=== PATIENT | female | born 1975 | race Caucasian/White ===

== ENCOUNTER 2023-03-24 18:09 | Emergency (ER) | payer MEDICAID, SELFPAY ==
[2023-03-24 18:11] VITALS: BP 151/93; PULSE 98; RESP 18; TEMP 36.9; O2SAT 96; BMI 31.8
[2023-03-24 18:34] VITALS: BMI 31.8
--- NOTE | 2023-03-24 18:35 | HMH.EDGENADL ---
Discharge Plan Disposition Patient Disposition: Home, Self-Care Chief Complaint: Abdominal Pain Referrals Follow up/Referrals: Savita Leyva [Primary Care Provider] - See instructions Lucrecia Blood DO [Staff Physician] - See instructions Clinical Impressions Clinical Impression: Ovarian cyst rupture, Adnexal cyst Instructions Patient Instructions: DI for Acute Abdominal Pain Discharge ED Provider: Tiff Peña General Adult HPI <Tiff Peña MD - Last Filed: 03/24/23 20:10> General Chief complaint: Abdominal Pain Stated complaint: Pain L Side into back Time Seen by Provider: 03/24/23 18:35 History of Present Illness HPI narrative: Patient is a 47-year-old female with left lower quadrant abdominal pain. This is been going on for several days and has been slowly worsening took about 24 hours to reach maximal intensity. No history of ovarian pathology no history of diverticulitis. Patient has not had any loose stools or bloody stools. No urinary symptoms other than a little bit of increased urine frequency but no urgency dysuria. Patient denies any changes in bowel movements no blood in her stool. No history of any kidney stones. There is some left flank pain associated with this but its been constant is a deeper pain not tender to the touch. No fevers or chills. Related Data Allergies Allergy/AdvReac Type Severity Reaction Status Date / Time Penicillins Allergy Verified 03/24/23 18:32 PFSH <Tiff Peña MD - Last Filed: 03/24/23 20:10> [facility] Disclaimer: The information contained in this section may have been updated after the patient was seen, as this information can be updated by other users. Social History (Updated 03/24/23 @ 20:10 by Tiff Peña MD) Smoking Status: Never smoker alcohol intake: never current occupational status: other Travel in the last 8 weeks: None <Tiff Peña MD - Last Filed: 03/24/23 20:10> ROS Obtained: Yes All systems reviewed & no additional complaints except as documented Physical Exam <Tiff Peña MD - Last Filed: 03/24/23 20:10> General General appearance: alert Respiratory Respiratory exam: Present normal lung sounds bilaterally Cardiovascular Cardiovascular exam: Present regular rate; Absent tachycardia Abdominal Exam Abdominal exam: Present tenderness (Left lower quadrant tenderness palpation no rebound or guarding no tenderness in other quadrants) Neurological Exam Neurological exam: Present alert and oriented X3 Medical Decision Making <Tiff Peña MD - Last Filed: 03/24/23 20:10> [facility] Inquiry Pt receiving controlled substance: No Vital Signs: 03/24/23 18:11 03/24/23 19:30 03/24/23 20:00 Temperature 98.4 F Temperature Source Oral Pulse Rate 86 77 Pulse Rate [Left Radial] 98 H Respiratory Rate 18 20 20 Blood Pressure 131/75 147/93 H Blood Pressure [Right Arm] 151/93 H Blood Pressure Mean 93 111 Blood Pressure Mean [Right Arm] 112 Blood Pressure Source [Right Arm] Automatic Cuff Blood Pressure Position [Right Arm] Sitting 02 Sat by Pulse Oximetry 96 95 98 Oxygen Delivery Method Room Air 03/24/23 20:31 Temperature Temperature Source Pulse Rate 80 Pulse Rate [Left Radial] Respiratory Rate 18 Blood Pressure 142/81 H Blood Pressure [Right Arm] Blood Pressure Mean 101 Blood Pressure Mean [Right Arm] Blood Pressure Source [Right Arm] Blood Pressure Position [Right Arm] 02 Sat by Pulse Oximetry 96 Oxygen Delivery Method Lab Data Lab results reviewed: Yes I reviewed the patient's lab results. Lab Results 03/24/23 18:25: Urine Color Yellow, Urine Appearance Clear, Urine pH 6.5, Ur Specific Pavo <= 1.005, Urine Protein Negative, Urine Glucose (UA) Negative, Urine Ketones Negative, Urine Blood Trace-i, Urine Nitrate Negative, Urine Bilirubin Negative, Urine Urobilinogen 0.2, Ur Leukocyte Esterase Negative, Urine RBC Occasional, Urine WBC None, Ur Squamous Epith Cells Occasional, Uri
--- NOTE | 2023-03-24 18:39 | CT_ITS ---
PROCEDURE INFORMATION: Exam: CT Abdomen And Pelvis With Contrast Exam date and time: 03/24/2023 7:10 PM Age: 47 years old Clinical indication: Abdominal pain; Generalized; Prior surgery; Surgery date: 6+ months; Surgery type: Hysterectomy; Additional info: Llq abd pain TECHNIQUE: Imaging protocol: Computed tomography of the abdomen and pelvis with contrast. Radiation optimization: All CT scans at this facility use at least one of these dose optimization techniques: automated exposure control; mA and/or kV adjustment per patient size (includes targeted exams where dose is matched to clinical indication); or iterative reconstruction. Contrast material: ISOVUE; Contrast volume: 75 ml; Contrast route: IV; REPORTING DATA: Count of CT and Cardiac NM exams in prior 12 months: This patient has received 0 known CTs and 0 known cardiac nuclear medicine studies in the 12 months prior to the current study. COMPARISON: No relevant prior studies available. FINDINGS: Lungs: Minimal bibasilar atelectasis. There is a 2 mm right lower lobe pulmonary nodule on image 1 series 3. Liver: Low attenuation hepatic lesions measuring up to 9 mm in diameter are incompletely characterized, but are likely cysts. No followup imaging is recommended. Gallbladder and bile ducts: Normal. No calcified stones. No ductal dilation. Pancreas: Normal. No ductal dilation. Spleen: Normal. No splenomegaly. Adrenal glands: Normal. No mass. Kidneys and ureters: Low attenuation renal lesions measuring up to 7 mm in diameter are incompletely characterized, but are likely cysts. No followup imaging is warranted. Stomach and bowel: Unremarkable. No obstruction. No mucosal thickening. Appendix: Unremarkable appendix. Intraperitoneal space: Trace free fluid in the pelvis, which could be physiologic. Vasculature: The arteries demonstrate mild atherosclerotic disease. Lymph nodes: Unremarkable. No enlarged lymph nodes. Urinary bladder: Unremarkable as visualized. Reproductive: Status post hysterectomy. Bilateral adnexal cystic lesions measuring up to 5.5 cm. These are favored to be simple cysts. Bones/joints: Unremarkable. No acute fracture. Soft tissues: Tiny fat containing umbilical hernia. IMPRESSION: 1. Small amount of free fluid around the left ovary. Please correlate for a recently ruptured ovarian cyst. 2. Bilateral adnexal cystic lesions measuring up to 5.5 cm. These are favored to be simple cysts. Ultrasound follow-up in 6-12 months is recommended. (Reference: Vic) 3. There is a 2 mm right lower lobe pulmonary nodule on image 1 series 3. For patients at low risk (minimal or absent history of smoking and of other known risk factors), no routine follow-up is indicated. For patients at high risk (history of smoking or of other known risk factors), consider optional CT Chest at 12 months. (Reference: Jacinto) COMMENTS: Consistent with the [employer]'s Incidental Findings Committee white paper (J Am Christina Radiol 2018): Any incidental renal lesion less than 1 cm or classified as too small to characterize, or any incidental cystic renal lesion characterized as simple-appearing, is likely benign. No follow-up imaging is recommended for these lesions per consensus recommendations based on imaging criteria. REFERENCES: 1. Vic et al. Management of Incidental Adnexal Findings on CT and MRI: A White Paper of the ACR Incidental Findings Committee, J Am Christina Radiol. 2019;17(2):248-254. 2. Jacinto Luna et al. Guidelines for Management of Incidental Pulmonary Nodules Detected on CT Images: From the Fleischner Society 2017. Radiolog
[2023-03-24 18:48] LABS: Microscopic, Urine URINE MICROSCOPIC (MICROSCOPIC)
[2023-03-24 18:52] LABS: Basophils % 0.5 % (0.1-2.0); Eosinophils # 0.1 K/mm3 (0.0-0.4); Eosinophils % 1.1 % (0.1-12.0); Hematocrit 40.8 % (37.0-47.0); Hemoglobin 13.5 g/dL (12.2-16.2); Lymphocytes # 1.9 K/mm3 (0.7-4.5); Mean Corpuscular Hemoglobin 29.1 pg (27.0-31.2); Mean Corpuscular Volume 87.9 fl (81-99); Mean Platelet Volume 7.9 fl (7.4-10.4); Monocytes # 0.4 K/mm3 (0.1-1.0); Neutrophils % 71.5 % (37.0-80.0); Platelet Count 236 K/mm3 (142-424); Red Blood Count 4.64 M/mm3 (4.20-5.40); Red Cell Distribution Width 13.3 % (11.5-17.5); White Blood Count 8.4 K/mm3 (4.8-10.8)
[2023-03-24 18:54] LABS: Lipase 61 U/L (23-300)
--- NOTE | 2023-03-24 18:56 | PC.NURSE ---
PT DID NOT WANT TO TAKE THE MORPHINE DOES DO WELL WITH PAIN MEDS
[2023-03-24 18:58] LABS: Appearance,Urine CLEAR (Clear); Bilirubin,Urine Negative (Negative); Blood, Urine TRACE-I (Negative); Color,Urine YELLOW (Yellow); Glucose,Urine (UA) Negative (Negative); Ketones,Urine Negative (Negative); Leukocyte Esterase,Urine Negative (Negative); Nitrate,Urine Negative (Negative); PH,Urine 6.5 (5.0-8.5); Protein,Urine Negative (Negative); Specific Gravity, Urine <= 1.005 (1.005-1.030); Urobilinogen,Urine 0.2 EU/dl (0.2)
[2023-03-24 19:20] LABS: Bacteria,Urine Trace /lpf; RBC,Urine Occasional #/hpf (0-3); Squamous Epithelial Cell,Urine Occasional #/hpf (0-5)
[2023-03-24 19:30] VITALS: BP 131/75; PULSE 86; RESP 20; O2SAT 95
--- NOTE | 2023-03-24 19:56 | US_ITS ---
PROCEDURE INFORMATION: Exam: US Duplex Artery or Vein of the Abdominal and/or Reproductive Organs, Limited Ovaries Exam date and time: 03/24/2023 8:44 PM Clinical indication: Pelvic pain; Prior surgery; Surgery date: 6+ months; Surgery type: Hysterectomy; Additional info: Transvag, evaluate for torsion TECHNIQUE: Imaging protocol: Real-time duplex ultrasound scan of the arterial or venous flow with storey scale, color Doppler flow and spectral waveform analysis with image documentation. Limited duplex exam focused on the ovaries. Duplex exam was performed to evaluate for torsion and other vascular conditions. COMPARISON: No relevant prior studies available. FINDINGS: Right ovary/adnexa: Surgically absent right ovary. Left ovary/adnexa: Unremarkable left ovarian arterial waveforms. IMPRESSION: Surgically absent right ovary. No evidence of left ovarian torsion. PROCEDURE INFORMATION: Exam: US Pelvis, Transvaginal Exam date and time: 03/24/2023 8:44 PM Age: 47 years old Clinical indication: Pelvic pain; Prior surgery; Surgery date: 6+ months; Surgery type: Hysterectomy; Additional info: Transvag, evaluate for torsion TECHNIQUE: Imaging protocol: Real-time transvaginal pelvic ultrasound with image documentation. Transvaginal imaging was used for better evaluation of the endometrium, adnexa, and/or cervix. COMPARISON: CT ABDOMEN PELVIS W CON 24/03/2023 19:10 FINDINGS: Uterus: The uterus is absent. Right ovary/adnexa: Tubular cystic structure in the right adnexum measuring up to 5.7 cm. Left ovary/adnexa: Tubular shaped cystic structure in the left adnexum measuring up to 3.7 cm. Unremarkable left ovarian arterial waveforms. Intraperitoneal space: Trace free fluid. IMPRESSION: Bilateral adnexal cystic lesions with a shape suggesting fluid-filled fallopian tubes. This is most likely a chronic finding for this patient, however, please exclude superimposed infection.
[2023-03-24 20:00] VITALS: BP 147/93; PULSE 77; RESP 20; O2SAT 98
[2023-03-24 20:31] VITALS: BP 142/81; PULSE 80; RESP 18; O2SAT 96
[2023-03-24 22:05] VITALS: BP 124/75; PULSE 79; RESP 19; TEMP 36.8; O2SAT 98
== END 2023-03-24 22:07 | disposition home or self-care (01) ==
PROVIDERS: Emergency Provider Student in an Organized Health Care Education/Training Program; PCP Nurse Practitioner Family
DX: N83.292 Other ovarian cyst, left side (principal); R10.32 Left lower quadrant pain
CPT/HCPCS: 74177; 76830; 81001; 83690; 85025; 96361; 96374; 96375; 99285; J2405; Q9967

== ENCOUNTER → 2023-04-01 09:19 | Outpatient (CLI) | payer OTHER, MEDICAID, SELFPAY ==
--- NOTE | 2023-04-01 09:19 | MR_ITS ---
FINAL REPORT CLINICAL HISTORY: bilateral ovarian masses left sided lower pelvic pain x 2 weeks pt had a partial hysterectomy per patient COMPARISON: CT abdomen and pelvis dated 03/24/2023 FINDINGS: Multi planar MR imaging of the pelvis was performed without and with contrast. There is an elongated cystic mass in the right adnexa measuring 5.4 cm in length by 2.9 cm in diameter. This is mildly tubular hydrosalpinx. This is grossly similar to the prior exam. A left ovoid cystic lesion measuring 3.6 cm, does not appear to be tubular, and is unchanged from the prior CT.. There is no significant free fluid or adenopathy. The patient is status post hysterectomy. IMPRESSION: Right adnexal cystic structure similar morphology to prior CT suggestive of hydrosalpinx. Left adnexal cystic structure likely a complex cyst of the left ovary. In regards to infection, hydrosalpinx would be indistinguishable from pyosalpinx on MRI. Reviewed, Interpreted and Dictated by Ronald Thakkar MD Transcribed by Desirae Walden Authenticated and [facility]
== END ==
PROVIDERS: PCP Nurse Practitioner Family; Visit Provider Obstetrics & Gynecology
DX: N83.8 Other noninflammatory disorders of ovary, fallopian tube and broad ligament (principal)
CPT/HCPCS: 72197; A9576